=== PATIENT | female | born 1985 | race Two or more races ===

== ENCOUNTER 2022-12-12 09:05 | Emergency (ER) | payer OTHER ==
[~2022-12-12] VITALS: Ht 154.9 cm; Wt 59.0 kg
== END 2022-12-12 12:23 | disposition home or self-care (01) ==
LOC: ER 09:05
DX: B34.9 Viral infection, unspecified (principal); Z20.822 Contact with and (suspected) exposure to COVID-19; Z88.0 Allergy status to penicillin